=== PATIENT | female | born 1955 | race Caucasian/White ===

== ENCOUNTER 2018-08-31 05:29 | Observation (INO) | payer OTHER ==
[2018-08-30 12:31] LABS: BASOPHILS % (AUTO) 0.5 % (0-1); EOSINOPHILS # (AUTO) 0.2 X10'3 (0-0.9); EOSINOPHILS % (AUTO) 3.7 % (0-6); LYMPHOCYTES # (AUTO) 1.2 X10'3 (1.1-4.8); LYMPHOCYTES % (AUTO) 27.8 % (21-51); MEAN CORPUSCULAR HEMOGLOBIN 30.8 PG (27.0-31.0); MEAN CORPUSCULAR HGB CONC 33.9 g/dL (33.0-36.5); MEAN CORPUSCULAR VOLUME 90.8 FL (78-98); MEAN PLATELET VOLUME 6.7 FL (7.4-10.4); MONOCYTES # (AUTO) 0.4 X10'3 (0-0.9); MONOCYTES % (AUTO) 9.1 % (2-12); NEUTROPHILS # (AUTO) 2.5 X10'3 (1.8-7.7); NEUTROPHILS % (AUTO) 58.9 % (42-75); PRE OP HEMOGLOBIN 13.2 g/dL (12.0-16.0); PRE OP PLATELET COUNT 218 X10'3 (140-440); RED CELL DISTRIBUTION WIDTH 13.2 % (11.5-14.5)
[2018-08-30 12:43] LABS: ALBUMIN 3.7 G/DL (3.4-5.0); ALBUMIN/GLOBULIN RATIO 1.2 (1.1-1.5); ALKALINE PHOSPHATASE 65 IU/L (46-116); BLOOD UREA NITROGEN 15 MG/DL (7-18); BUN/CREATININE RATIO 22.7 (6.6-38.0); CALCIUM 9.4 MG/DL (8.5-10.1); CHLORIDE 106 MMOL/L (99-107); CREATININE 0.66 MG/DL (0.40-0.90); PRE OP ALT 36 U/L (30-65); PRE OP ANION GAP 5 (8-16); PRE OP AST 18 U/L (10-37); PRE OP BILIRUB, TOTAL 0.6 MG/DL (0.0-1.0); PRE OP GLUCOSE 100 MG/DL (70-104); PRE OP SODIUM 143 MMOL/L (135-145); TOTAL PROTEIN 6.8 G/DL (6.4-8.2); eGFR > 90 ML/MIN
[2018-08-30 12:44] LABS: PRE OP PROTIME 9.8 SECONDS (9.0-12.0)
[~2018-08-31] VITALS: Ht 157.5 cm; Wt 77.9 kg
[2018-08-31] VITALS (16 sets, daily range): BP systolic 115–181; BP diastolic 55–86
[~2018-08-31 05:29] MED LIST: ASCO10007 PO; BIOT1TAB PO; CHOL200016 PO
[2018-08-31] MEDS ORDERED: famotidine 20mg tablet PO ONE (05:30)
[2018-08-31] MEDS ORDERED: cefotetan 2gm/isosm dext IVPB 50 ML IV ONE (05:30)
[2018-08-31] MEDS: ringers solution, lacted 1,000 ML IV SCH ×4 (06:05→17:51)
[2018-08-31] MEDS ORDERED: LIDOcaine 1% (10mg/ml) 2ml vial ONE (06:06)
[2018-08-31] MEDS ORDERED: epiNEPHrine 1 mg/ml inj ONE (06:47)
[2018-08-31] MEDS ORDERED: LIDOcaine 1% 30ml preserv. free vial ONE (06:47)
[2018-08-31] MEDS ORDERED: BUPIVAcaine/PF 2.5mg/ml (0.25%) 10ml vial ONE ×2 (06:47→07:23)
[2018-08-31] MEDS ORDERED: ROPIVAcaine 0.5% (5mg/ml) 30ml vial ONE (06:58)
[2018-08-31] MEDS ORDERED: midazolam 2 mg/2 ml injection ONE (07:19)
[2018-08-31] MEDS ORDERED: fentaNYL /PF 50mcg/ml 5ml ampule ONE (07:19)
[2018-08-31] MEDS ORDERED: BUPIVACAINE liposomal/PF 13.3 MG/ML vial IM ONE (07:23)
[2018-08-31] MEDS ORDERED: fluoroscein sod 10% (100mg/ml) 5ml vial ONE (07:56)
[2018-08-31] MEDS ORDERED: sevoflurane 250ml liquid IH ONE (07:56)
[2018-08-31] MEDS ORDERED: propofol inj 20 ML IV ONE (07:57)
[2018-08-31] MEDS ORDERED: rocuronium 10mg/ml inj IV ONE (07:57)
[2018-08-31] MEDS ORDERED: LIDOcaine 1% w/epiNEPHrine 1:200,000 30ml vial IJ ONE (08:38)
[2018-08-31] MEDS ORDERED: LIDOcaine 2% (20mg/ml) 5ml vial ONE (08:45)
[2018-08-31] MEDS ORDERED: dexamethasone sod phosphate 4mg/ml inj. ONE (08:45)
[2018-08-31] MEDS ORDERED: glycopyrrolate 0.2mg/ml inj ONE (08:45)
[2018-08-31] MEDS ORDERED: ondansetron/PF 4mg/2ml inj ONE (08:45)
[2018-08-31] MEDS ORDERED: neostigmine methylsulfate 1 MG/ML 10ml vial ONE (08:45)
[2018-08-31] MEDS ORDERED: ringers solution, lacted 1,000 ML IV SCH (09:34)
[2018-08-31] MEDS ORDERED: ondansetron/PF 4mg/2ml inj IV PRN ×2 (09:35→11:05)
[2018-08-31] MEDS ORDERED: meperidine/PF 25mg/ml syringe IV PRN ×3 (09:35)
[2018-08-31] MEDS ORDERED: proCHLORperazine 10 MG/2 ml inj IV PRN (09:35)
[2018-08-31] MEDS ORDERED: morphine 4 MG/ML inj SYRINge IV PRN ×3 (09:35→11:10)
[2018-08-31] MEDS ORDERED: clindamycin phosphate 40gm vag cream ONE (10:15)
--- NOTE | 2018-08-31 10:30 | NUR ---
Received from OR via SURGICAL BED , accompanied by Anesthesiologist KUMAR and report given by Anesthesiolgist. PATIENT WITH 18G PIV IN RIGHT HAND RUNNING LR AT 100. DENIES PAIN. ALICIA PAD IN PLACE. PACKING INTACT. VSS AT THIS TIME. 10L MASK ON WITH 100% SATURATIONS. Addendum: 08/31/18 at 1054 by Elias Orlando RN, RN Amended: Links added.
[2018-08-31] MEDS ORDERED: normal saline 500ml IV soln 500 ML IV PRN (11:05)
[2018-08-31] MEDS ORDERED: diphenhydrAMINE 50 mg/ml inj IV PRN (11:05)
[2018-08-31] MEDS ORDERED: oxyCODONE/APAP 5-325mg tablet PO PRN (11:10)
--- NOTE | 2018-08-31 11:30 | NUR ---
ALL CRITERIA FOR TRANSFER TO THE FLOOR HAS BEEN ACHIEVED. VSS. BED LOW, CALL LIGHT AND VS. SET IN PLACE. RN PRESENT TO ACCEPT CARE. PATIENT RESTING COMFORTABLY IN BED. BELONGINGS SENT WITH PATIENT. DRESSINGS CDI. RN AWARE PATIENT HAS ARRIVED. PAIN WELL CONTROLLED. Addendum: 08/31/18 at 1156 by Elias Orlando RN, RN Amended: Links added.
[2018-08-31] MEDS: simethicone 80mg chew tab PO SCH ×2 (13:00→17:51)
[2018-08-31] MEDS: ketorolac tromethamine 15mg/ml inj. IV PRN ×2 (14:26→21:02)
--- NOTE | 2018-08-31 18:30 | NUR ---
Patient in room [facility]. I have received report from Samantha SALINAS and had the opportunity to ask questions and assume patient care.
--- NOTE | 2018-08-31 18:39 | NUR ---
Problems reprioritized. Patient report given, questions answered & plan of care reviewed with Pilar SALINAS.
[2018-08-31] MEDS: docusate sod 100mg capsule PO SCH (19:06)
[2018-08-31] MEDS ORDERED: temazepam 15mg capsule PO PRN (21:00)
[2018-09-01] VITALS: BP 121/58
[2018-09-01] MEDS: ringers solution, lacted 1,000 ML IV SCH (03:26)
--- NOTE | 2018-09-01 05:10 | NUR ---
d/c sanford catheter and vaginal packing. pt tolerated well. educated pt about voiding and post residual volume. will continue to monitor.
[2018-09-01 06:21] LABS: BASOPHILS % (AUTO) 0.1 % (0-1); EOSINOPHILS % (AUTO) 0.1 % (0-6); HEMATOCRIT 33.1 % (35.0-45.0); HEMOGLOBIN 11.2 g/dl (12.0-16.0); LYMPHOCYTES # (AUTO) 1.2 X10'3 (1.1-4.8); LYMPHOCYTES % (AUTO) 14.6 % (21-51); MEAN CORPUSCULAR HEMOGLOBIN 31.1 PG (27.0-31.0); MEAN CORPUSCULAR HGB CONC 33.7 g/dL (33.0-36.5); MEAN CORPUSCULAR VOLUME 92.2 FL (78-98); MEAN PLATELET VOLUME 7.1 FL (7.4-10.4); MONOCYTES # (AUTO) 0.7 X10'3 (0-0.9); MONOCYTES % (AUTO) 8.9 % (2-12); NEUTROPHILS # (AUTO) 6.4 X10'3 (1.8-7.7); NEUTROPHILS % (AUTO) 76.3 % (42-75); PLATELET COUNT 180 X10'3 (140-440); RED BLOOD COUNT 3.59 X10'6 (4.20-5.60); RED CELL DISTRIBUTION WIDTH 13.5 % (11.5-14.5); WHITE BLOOD COUNT 8.4 X10'3 (4.5-11.0)
[2018-09-01 06:30] LABS: ALBUMIN 3.1 G/DL (3.4-5.0); ANION GAP 6 (8-16); BLOOD UREA NITROGEN 11 MG/DL (7-18); BUN/CREATININE RATIO 15.1 (6.6-38.0); CALCIUM 8.6 MG/DL (8.5-10.1); CHLORIDE 106 MMOL/L (99-107); CREATININE 0.73 MG/DL (0.40-0.90); GLUCOSE 107 MG/DL (70-104); POTASSIUM 3.6 MMOL/L (3.5-5.1); SODIUM 143 MMOL/L (135-145); eGFR 81 ML/MIN
--- NOTE | 2018-09-01 06:37 | NUR ---
Problems reprioritized. Patient report given, questions answered & plan of care reviewed with Breanna SALINAS.
[2018-09-01 07:00] VITALS: BP 156/74
[2018-09-01] MEDS: docusate sod 100mg capsule PO SCH (07:43)
[2018-09-01] MEDS: simethicone 80mg chew tab PO SCH (07:43)
[2018-09-01] MEDS: ketorolac tromethamine 15mg/ml inj. IV PRN (07:48)
[2018-09-01] MEDS ORDERED: ascorbic acid 500mg tablet PO SCH (08:00)
[2018-09-01] MEDS ORDERED: vitamin D (cholecalciferol) 1,000 unit tablet PO SCH (08:00)
--- NOTE | 2018-09-01 10:48 | NUR ---
PT DISCHARGED IN STABLE CONDITION. LEFT FACILITY IN PRIVATE VEHICLE. IV DC CANULA INTACT. FOLLOW UP INSTRUCTIONS GIVEN, ALL QUESTIONS ANSWERED. PT STATES THAT SHE HAS AN ALLERGY TO MEDICATION PRESCRIBED FOR PT, PT STATES THAT SHE BELIEVES IT IS PERCOCET. MED GIVEN TO PT PRIOR TO SURGERY. I ATTEMPTED TO NOTIFY DR MORE PRIOR TO PT DC BUT I DID NOT REC CALL BACK. NOTIFIED PT NOT TO TAKE MEDS, IF I GET A CALL BACK I WILL HAVE MD CALL PT TO ARRANGE NEW MED. PT COULD NOT WAIT RIDE WAS WAITING FOR PT. Addendum: 09/01/18 at 1050 by Merlyn Mix RN Amended: Links added.
== END 2018-09-01 10:45 | disposition home or self-care (01) ==
LOC: PAS 05:29 → SUR 3N 11:08
PROVIDERS: ADMIT Obstetrics & Gynecology; ATTEND Obstetrics & Gynecology
DX: N18.2 Chronic kidney disease, stage 2 (mild) (principal); N39.3 Stress incontinence (female) (male); N81.6 Rectocele
CPT/HCPCS: 36415; 57265; 57283; 80048; 80053; 82948; 85025; 85610; 85730; 86885; 86900; 86901; 87070; 93005; 96374; 96375; 96376; C1771; G0378; J0171; J1100; J1200; J1885; J2001; J2175; J2250; J2270; J2405; J2704; J2710; J3010; J3490; J7120; A4355; A6250; A7000; C1758; J2795; J7030

== ENCOUNTER 2020-01-07 11:32 | Emergency (ER) | payer OTHER ==
[~2020-01-07] VITALS: Ht 154.9 cm; Wt 87.5 kg
[2020-01-07 11:42] VITALS: BP 145/98
== END 2020-01-07 12:13 | disposition home or self-care (01) ==
LOC: ER 11:32
DX: R05 Cough (principal); R51 Headache; R06.02 Shortness of breath; M79.18 Myalgia, other site; Z20.828 Contact with and (suspected) exposure to other viral communicable diseases; I10 Essential (primary) hypertension; F41.9 Anxiety disorder, unspecified; Z98.890 Other specified postprocedural states; Z91.040 Latex allergy status; Z88.5 Allergy status to narcotic agent; Z88.0 Allergy status to penicillin; Z88.8 Allergy status to other drugs, medicaments and biological substances; Z79.899 Other long term (current) drug therapy
CPT/HCPCS: 36415; 99283; U0003